=== PATIENT | male | born 1965 | race African-American/Black ===

== ENCOUNTER 2019-06-22 14:13 | Emergency (ER) | payer MEDICAID ==
[~2019-06-22] VITALS: Ht 180.3 cm; Wt 100.0 kg
[2019-06-22] MEDS ORDERED: KETOROLAC 60MG/2ML VIAL IM ONE (14:45)
[2019-06-22] MEDS ORDERED: HYDROCODONE/ACETAMINOPHEN 5/325MG TABLET PO ONE (15:00)
[2019-06-22 16:33] VITALS: BP 142/79
== END 2019-06-22 16:36 | disposition home or self-care (01) ==
LOC: ER 14:13
DX: M79.645 Pain in left finger(s) (principal); Z98.890 Other specified postprocedural states; Z88.6 Allergy status to analgesic agent
CPT/HCPCS: 73140; 99283; 99284